=== PATIENT | male | born 1995 | race African-American/Black ===

== ENCOUNTER 2020-12-10 14:11 | Emergency (ER) | payer OTHER, MEDICAID ==
[~2020-12-10] VITALS: Ht 182.9 cm; Wt 130.0 kg
[2020-12-10] MEDS ORDERED: IBUPROFEN 600MG TABLET PO ONE (17:15)
[2020-12-10] MEDS ORDERED: TETANUS, DIPHTHERIA, PERTUSSIS VAC/PF 0.5ML (>7YR OLD) IM ONE (17:15)
[2020-12-10 18:41] VITALS: BP 141/88
== END 2020-12-10 18:43 | disposition home or self-care (01) ==
LOC: ER 14:11
DX: S01.81XA Laceration without foreign body of other part of head, initial encounter (principal); S09.8XXA Other specified injuries of head, initial encounter; Y08.89XA Assault by other specified means, initial encounter; Y93.9 Activity, unspecified; Y92.9 Unspecified place or not applicable; Z88.2 Allergy status to sulfonamides; Z98.890 Other specified postprocedural states
CPT/HCPCS: 70450; 70486; 90471; 90715; 99285; A4217; Z7610